=== PATIENT | male | born 1990 | race Caucasian/White ===

== ENCOUNTER 2020-12-23 21:58 | Emergency (ER) | payer BC ==
[2020-12-23] MEDS ORDERED: Sodium Chloride 0.9% 10 ML Syringe FLUSH PRN (22:51)
[2020-12-23] MEDS ORDERED: Dexamethasone 4 MG/ML SDV IVPUSH ONE (22:51)
[2020-12-23] MEDS ORDERED: Ketorolac 15 MG/ML SDV IVPUSH ONE (22:51)
[2020-12-23] MEDS ORDERED: Lactated Ringers 1,000 ML IV ONE (22:51)
--- NOTE | 2020-12-23 22:57 | EDM.PDOC ---
ED HPI GENERAL MEDICAL PROBLEM - General Chief Complaint: ENT Problem Stated Complaint: FEELS LIKE THROAT IS CLOSING Time Seen by Provider: 12/23/20 22:35 Source of Information: Reports: Patient History Limitations: Reports: No Limitations - History of Present Illness INITIAL COMMENTS - FREE TEXT/NARRATIVE: Patient arrived to ED by private vehicle Onset of symptoms was 2 days ago Describes cold symptoms with nasal congestion, mild sore throat Tonight while he was lying down, he felt like his throat was closing off and he had difficulty breathing EMS was called to the scene, however patient declined transport to ED He notes improvement in symptoms when he is sitting upright vs semirecumbent Endorses some effort required to talk Denies neck mass or swelling Denies drooling or dysphagia Denies nausea, vomiting, diarrhea - Related Data Allergies Allergy/AdvReac Type Severity Reaction Status Date / Time No Known Allergies Allergy Verified 12/23/20 22:07 Home Meds: Home Meds . [No Known Home Meds] 12/23/20 [History] Past Medical History Endocrine/Metabolic History: Reports: Obesity/BMI 30+ - Past Surgical History HEENT Surgical History: Reports: Oral Surgery GI Surgical History: Reports: Appendectomy Social & Family History - Tobacco Use Tobacco Use Status *Q: Never Tobacco User - Caffeine Use Caffeine Use: Reports: Coffee - Recreational Drug Use Recreational Drug Use: No ED ROS GENERAL - Review of Systems Review Of Systems: See Below Free Text/Narrative/Comment: Constitutional - no fever Eyes - no eye pain; no visual disturbance ENT - no rhinorrhea; congestion; sore throat; no epistaxis; hoarse/muffled voice Cardiovascular - no chest pain Respiratory - no shortness of breath; no cough Gastrointestinal - no abdominal pain; no nausea; no vomiting; no diarrhea Genitourinary - no dysuria Musculoskeletal - no neck pain; no back pain; no extremity injury Neurological - no headache; no weakness ED EXAM, GENERAL - Physical Exam Exam: See Below Free Text/Narrative:: Constitutional - awake; alert; mild pain distress Head - no facial swelling or weakness Eyes - extra ocular motion intact; conjunctiva normal; pupils equal and reactive to light ENT - no nasal deformity; no epistaxis; mild dysphonia; mucus membranes moist; mild pharyngeal erythema; no tonsillar exudates Neck - no swelling; supple Respiratory - normal respiratory effort; no crackles or wheezing; no stridor Cardiovascular - regular rhythm; tachycardia; S1; S2; grade 1/6 systolic murmur GI/Abdomen - normal bowel sounds; soft; no tenderness; no rebound; no guarding; no mass Musculoskeletal - grossly normal strength and motion; no swelling or deformity Skin - warm; dry Neurologic - normal speech; no weakness; gait intact Psychiatric - normal mood and affect; memory and attention normal Course - Vital Signs Text/Narrative:: . Considered etiologies included: URI, pharyngitis, viral syndrome, strep throat, laryngitis, parapharyngeal abscess Symptoms and examination were discussed Investigations were initiated Empiric treatment was initiated with IV fluid infusion, ketorolac, and dexamethasone At re-evaluation there was no significant change in symptoms or condition Results revealed no specific etiology for his symptoms He was provided reassurance regarding results and absence of objective respiratory or airway impairment Primary care follow-up was discussed Patient was felt to be stable for outpatient follow-up Return precautions were provided Last Recorded V/S: Last Vital Signs Temp 37.3 C 12/23/20 22:03 Pulse 115 H 12/23/20 23:15 Resp 16 12/23/20 22:03 BP 164/106 H 12/23/20 22:03 Pulse Ox 97 12/23/20 22:03 - Orders/Labs/Meds Labs: Laboratory Tests 12/23/20 12/23/20 12/23/20 Range/Units 22:10 23:05 23:05 WBC 15.96 H (4.23-9.07) K/mm3 RBC 5.82 (4.63-6.08) M/mm3 Hgb 16.2 (13.7-17.5) gm/dl Hct 47.2 (40.1-51.0) % MCV 81.1 (79.0-92.2) fl MCH 27.8 (25.7-32.2) pg MCHC 34.3 (32.2-35.5) g/dl RDW Std Deviation 38.8 (35.1-43.9) fL Plt Count 228 (163-337) K/mm3 MPV 10.8 (9.4-12.3) fl Neut % (Auto) 83.1 H (34.0-67.9) % Lymph % (Auto) 7.6 L (21.8-53.1) % Stokes % (Auto) 7.8 (5.3-12.2) % Eos % (Auto) 0.9 (0.8-7.0) Baso % (Auto) 0.2 (0.1-1.2) % Neut # (Auto) 13.28 H (1.78-5.38) K/mm3 Lymph # (Auto) 1.21 L (1.32-3.57) K/mm3 Stokes # (Auto) 1.24 H (0.30-0.82) K/mm3 Eos # (Auto) 0.14 (0.04-0.54) K/mm3 Baso # (Auto) 0.03 (0.01-0.08) K/mm3 Manual Slide Review Abnormal smear Sodium 141 (136-145) mEq/L Potassium 4.1 (3.5-5.1) mEq/L Chloride 103 (98-107) mEq/L Carbon Dioxide 29 (21-32) mEq/L Anion Gap 13.1 (5-15) BUN 18 (7-18) mg/dL Creatinine 1.1 (0.7-1.3) mg/dL Est Cr Clr Drug Dosing 99.09 mL/min Estimated GFR (MDRD) > 60 (>60) mL/min BUN/Creatinine Ratio 16.4 (14-18) Glucose 92 (74-106) mg/dL Calcium 9.1 (8.5-10.1) mg/dL Total Bilirubin 0.8 (0.2-1.0) mg/dL AST 26 (15-37) U/L ALT 91 H (16-63) U/L Alkaline Phosphatase 83 (46-116) U/L Total Protein 8.2 (6.4-8.2) g/dl Albumin 4.1 (3.4-5.0) g/dl Globulin 4.1 gm/dL Albumin/Globulin Ratio 1.0 (1-2) Group A Strep (PCR) Not detected (NOT DETECT) Meds: Medications Discontinued Medications Generic Name Dose Route Start Last Admin Trade Name Freq PRN Reason Stop Dose Admin Dexamethasone 4 mg 12/23/20 22:51 12/23/20 23:08 Dexamethasone 4 Mg/Ml Sdv IVPUSH 12/23/20 22:52 4 mg ONETIME ONE Administration Lactated Ringer's 1,000 mls @ 999 mls/hr 12/23/20 22:51 12/23/20 23:08 Ringers, Lactated IV 12/23/20 23:51 999 mls/hr .BOLUS ONE Administration Iopamidol 80 ml 12/24/20 00:58 12/24/20 01:10 Iopamidol 612 Mg/Ml 100 Ml Bottle IVPUSH 12/24/20 00:59 80 ml ONETIME ONE Administration Ketorolac Tromethamine 15 mg 12/23/20 22:51 12/23/20 23:08 Ketorolac 15 Mg/Ml Sdv IVPUSH 12/23/20 22:52 15 mg ONETIME ONE Administration Sodium Chloride 10 ml 12/23/20 22:51 12/23/20 23:09 Sodium Chloride 0.9% 10 Ml Syringe FLUSH 10 ml ASDIRECTED PRN Administration Keep Vein Open Sodium Chloride 10 ml 12/24/20 00:58 12/24/20 01:11 Sodium Chloride 0.9% 10 Ml Syringe FLUSH 10 ml ONETIME PRN Administration Keep Vein Open - Radiology Interpretation Free Text/Narrative:: CT neck soft tissue, IV contrast, preliminary radiology report: There are shotty bilateral cervical lymph nodes. Otherwise negative examination Departure - Departure Time of Disposition: 02:40 Disposition: Home, Self-Care 01 Condition: Good Clinical Impression: Pharyngitis Qualifiers: Pharyngitis/tonsillitis etiology: unspecified etiology Qualified Code(s): J02.9 - Acute pharyngitis, unspecified - Discharge Information Instructions: Pharyngitis Referrals: Rodney Barry MD [Primary Care Provider] - Forms: ED Department Discharge Additional Instructions: Return if condition worsens May resume general activity and regular diet as tolerated Continue usual medications Follow-up with primary care provider is recommended within 3 to 5 days Sepsis Event Note (ED) - Evaluation Sepsis Screening Result: No Definite Risk
[2020-12-24] MEDS ORDERED: Sodium Chloride 0.9% 10 ML Syringe FLUSH PRN (00:58)
[2020-12-24] MEDS ORDERED: Iopamidol 612 MG/ML 100 ML Bottle IVPUSH ONE (00:58)
--- NOTE | 2020-12-24 07:31 | CT ---
CT neck Technique: Multiple axial sections through the neck were obtained. Intravenous contrast was utilized. Reconstructed coronal and sagittal images were obtained. Comparison: No prior neck studies are available. Findings: Visualized upper lungs show no acute abnormality. Thyroid gland shows no discrete abnormality. Submandibular salivary glands and parotid salivary glands appear normal. Visualized paranasal sinuses show minimal mucosal thickening within both maxillary sinuses. No air-fluid levels are seen within the paranasal sinuses. Small lymph nodes are seen within the neck which are believed to be normal. No neck mass is seen. No parapharyngeal soft tissue abnormality is seen. Epiglottis is normal. Prevertebral soft tissues are within normal limits. Bone window settings were reviewed which show no acute osseous abnormality. Impression: 1. Findings as noted above. 2. Nothing acute is appreciated. Diagnostic code #2 I agree with preliminary report from [facility], finalized on 12/24/20, 2:47 AM CDT, code 1
== END 2020-12-24 02:55 | disposition home or self-care (01) ==
LOC: JD.ED 21:58
DX: J02.9 Acute pharyngitis, unspecified (principal); E66.9 Obesity, unspecified; Z68.33 Body mass index [BMI] 33.0-33.9, adult
CPT/HCPCS: 36415; 70491; 80053; 85025; 87651; 96374; 96375; 99284; J1100; J1885; J7120; Q9967